=== PATIENT | male | born 1980 | race American Indian/Alaskan Native ===

== ENCOUNTER 2017-10-25 06:21 | Day surgery (SDC) | payer BC ==
[~2017-10-25] VITALS: Ht 170.2 cm; Wt 105.4 kg
[~2017-10-25 06:21] MED LIST: AMOCLA875 PO; Amlodipine Bes2.5 MG; CODACE30 PO; CYCL10 PO; DEPRESSION MEDICATIO; DESVENLAFAXINE50 M2; LORA1; NAPR500 PO; Percocet 5-3251 EACH PO; SULTRISS PO; VALA500 PO; VARE1
[2017-10-25] MEDS ORDERED: LANS30EC PO (07:25)
== END 2017-10-25 11:40 | disposition home or self-care (01) ==
LOC: ORSCSDS 06:21
PROVIDERS: Orthopaedic Surgery
PROC: 0LS14ZZ Reposition Right Shoulder Tendon, Percutaneous Endoscopic Approach (ICD-10-PCS; principal; 2017-10-25 08:00)
PROC: 0RQJ4ZZ Repair Right Shoulder Joint, Percutaneous Endoscopic Approach (ICD-10-PCS; principal; 2017-10-25 08:00)
PROC: 0RBJ4ZZ Excision of Right Shoulder Joint, Percutaneous Endoscopic Approach (ICD-10-PCS; principal; 2017-10-25 08:00)
DX: S43.021A Posterior subluxation of right humerus, initial encounter (principal); S43.431A Superior glenoid labrum lesion of right shoulder, initial encounter; M71.311 Other bursal cyst, right shoulder; I10 Essential (primary) hypertension; F17.210 Nicotine dependence, cigarettes, uncomplicated; F41.8 Other specified anxiety disorders; K21.9 Gastro-esophageal reflux disease without esophagitis; E66.9 Obesity, unspecified; Z68.36 Body mass index [BMI] 36.0-36.9, adult; Z79.899 Other long term (current) drug therapy
CPT/HCPCS: C1713; J0171; J0690; J1100; J2250; J2405; J2710; J3010; J7120

== ENCOUNTER → 2021-05-25 | Outpatient (CLI) | payer OTHER ==
[~2021-05-25] MED LIST changes: +LANS30EC PO
[2021-05-25 19:45] LABS: BASOPHILS ABSOLUTE AUTO 0.02 K/mm3 (0.00-0.23); BASOPHILS PERCENT AUTO 0 % (0-2); EOSINOPHILS ABSOLUTE AUTO 0.21 K/mm3 (0.00-0.68); EOSINOPHILS PERCENT AUTO 3 % (0-6); Hematocrit 44.5 % (37.0-53.0); Hemoglobin 15.5 g/dL (13.5-17.5); IMMATURE GRAN ABSOLUTE AUTO 0.02 K/mm3 (0.00-0.10); IMMATURE GRAN PERCENT AUTO 0 % (0-1); LYMPHOCYTES ABSOLUTE AUTO 2.92 K/mm3 (0.84-5.20); LYMPHOCYTES PERCENT AUTO 36 % (21-46); MONOCYTES PERCENT AUTO 9 % (4-13); Mean Corpuscular HGB 31.7 pg (26.0-34.0); Mean Corpuscular HGB Conc 34.8 g/dL (31.5-36.5); Mean Corpuscular Volume 91 fL (80-100); NEUTROPHILS ABSOLUTE AUTO 4.22 K/mm3 (1.96-9.15); NEUTROPHILS PERCENT AUTO 52 % (41-73); Platelet Count 334 K/mm3 (150-400); RDW Coefficient Variation 13.2 % (11.7-14.2); RDW Standard Deviation 44.2 fL (35.1-46.3); Red Blood Cell Count 4.89 M/mm3 (4.30-5.90); White Blood Cell Count 8.09 K/mm3 (4.00-11.30)
== END | disposition home or self-care (01) ==
LOC: LAB SHORT 19:10 → LAB 19:10
PROVIDERS: Family Medicine
DX: R59.0 Localized enlarged lymph nodes (principal)
CPT/HCPCS: 85025; 85651

== ENCOUNTER 2022-01-12 06:12 | Day surgery (SDC) | payer OTHER, BC ==
[~2022-01-12] VITALS: Ht 167.6 cm; Wt 100.8 kg
[~2022-01-12 06:12] MED LIST changes: +AMLO5 PO; +SERT100 PO; +TRAZ150T57 PO
--- NOTE | 2022-01-12 07:43 | NUR ---
01/12/22 0743 SY CASTILLO LIDOCAINE 1% MIXED WITH 0.3ML EPINEPHRINE TO CREATE A LOCAL INJECTION OF LIDOCAINE 1% WITH 1:100,000 EPI. 10MLS INJECTED BY JULIO MONTENEGRO INTO RIGHT HAND AT BEGINNING OF CASE. PT APPEARS TO HAVE MULTIPLE SCABS TO RIGHT HAND. DR. FINLEY AWARE.
== END 2022-01-12 08:10 | disposition home or self-care (01) ==
LOC: ORSCSDS 06:12
PROVIDERS: Orthopaedic Surgery
PROC: 01N50ZZ Release Median Nerve, Open Approach (ICD-10-PCS; principal; 2022-01-12 07:30)
DX: G56.01 Carpal tunnel syndrome, right upper limb (principal); F41.9 Anxiety disorder, unspecified; F32.A Depression, unspecified; I10 Essential (primary) hypertension; G47.33 Obstructive sleep apnea (adult) (pediatric); F17.210 Nicotine dependence, cigarettes, uncomplicated; E66.9 Obesity, unspecified; Z68.35 Body mass index [BMI] 35.0-35.9, adult; Z79.899 Other long term (current) drug therapy
CPT/HCPCS: J0171; J1100; J2250; J2405; J2704; J3010; J7120